=== PATIENT | female | born 1990 | race Caucasian/White ===

== ENCOUNTER 2021-06-12 03:58 | Emergency (ER) | payer MEDICAID ==
[2021-06-12 04:51] LABS: ANION GAP 9.5 meq/L (7-15); CHLORIDE,CL 104 mmol/L (98-107); SODIUM,NA 137 mmol/L (136-145)
[2021-06-12] MEDS: Calcium Carbonate 750 MG Tab.Chew PO ONE (04:51)
== END 2021-06-12 05:10 | disposition home or self-care (01) ==
LOC: LL.ED 03:58
DX: O99.891 Other specified diseases and conditions complicating pregnancy (principal); R12 Heartburn; Z3A.20 20 weeks gestation of pregnancy; Z88.8 Allergy status to other drugs, medicaments and biological substances
CPT/HCPCS: 36415; 80053; 85025; 99284; A9270

== ENCOUNTER 2024-10-20 07:23 | Emergency (ER) | payer MEDICAID ==
[2024-10-20 08:09] LABS: APPEARANCE,URINE TURBID; GLUCOSE,URINE NEGATIVE (NEGATIVE); OCCULT BLOOD,URINE MODERATE (NEGATIVE)
[2024-10-20] MEDS: Take Home: Nitrofurantoin Monohydrate/Macrocrystalline 100 MG, 6 Cap Pack PO ONE (08:28)
== END 2024-10-20 08:30 | disposition home or self-care (01) ==
LOC: LL.ED 07:23
DX: N39.0 Urinary tract infection, site not specified (principal); Z88.8 Allergy status to other drugs, medicaments and biological substances; Z79.899 Other long term (current) drug therapy
CPT/HCPCS: 81001; 87086; 87088; 87186; 99283; 99284; A9270-GY